=== PATIENT | female | born 1950 | race Caucasian/White ===

== ENCOUNTER 2022-11-14 19:48 | Emergency (ER) | payer MEDICARE ==
[~2022-11-14] VITALS: Ht 162.5 cm; Wt 100.3 kg
[~2022-11-14 19:48] MED LIST: CELEBREX200 MG PO; COZAAR25 MG PO; COZAAR50 MG PO; KLOR-CON M2020 MEQ PO; LASIX20 MG PO; MOTRIN800 MG PO; OMEPRAZOLE20 MG PO; SKELAXIN800 MG PO; ZIAC 10 MG-6.251 TAB PO; ZIAC 2.5 MG-6.25 MG PO
[2022-11-14] MEDS ORDERED: DICLOFENAC SOD75 MG PO (19:55)
[2022-11-14] MEDS ORDERED: IBUPROFEN600 MG PO (19:55)
[2022-11-14 20:14] LABS: BASO # 0.1 10*3/uL (0.0-0.1); BASO % 0.5 % (0.0-1.0); EOS # 0.2 10*3/uL (0.0-0.4); EOS % 2.4 % (1.0-4.0); HEMATOCRIT 42.9 % (37.0-47.0); LYMPH # 2.3 10*3/uL (1.3-4.4); LYMPH % 24.6 % (27.0-41.0); MEAN CELL VOLUME 95.8 fl (81.0-99.0); MEAN CORPUSCULAR HGB CONC 34.5 g/dl (33.0-37.0); MEAN PLATELET VOLUME 10.5 fl (9.6-12.3); MONO % 10.2 % (3.0-9.0); NEUT # 5.9 10*3/uL (2.3-7.9); NEUT % 61.8 % (47.0-73.0); PLATELET COUNT AUTOMATED 193 10*3/uL (130-400); RED BLOOD COUNT 4.48 10*6/uL (4.10-5.10); RED CELL DISTRI WIDTH 12.7 % (0-14.5); WHITE BLOOD COUNT 9.5 10*3/uL (4.8-10.8)
[2022-11-14 20:29] LABS: ACT PARTIAL THROMBO TIME 29.1 SECONDS (20.0-32.1)
[2022-11-14 20:31] LABS: ALKALINE PHOSPHATASE 77 U/L (46-116); BUN 10 mg/dl (9-23); CHLORIDE 112 mmol/L (98-107); LIPASE 37 U/L (12-53); POTASSIUM 4.1 mmol/L (3.4-5.1); SGPT/ALT 19 U/L (10-49); TOTAL PROTEIN 6.1 gm/dL (6.0-8.0)
[2022-11-14 20:32] LABS: ETHYL ALCOHOL < 3.0 mg/dl (<3)
== END 2022-11-14 21:51 | disposition home or self-care (01) ==
LOC: ED 19:48
PROVIDERS: Internal Medicine
DX: M25.561 Pain in right knee (principal); R07.81 Pleurodynia; M25.531 Pain in right wrist; M25.511 Pain in right shoulder; I10 Essential (primary) hypertension; K21.9 Gastro-esophageal reflux disease without esophagitis; Z98.890 Other specified postprocedural states

== ENCOUNTER 2023-04-11 13:29 | Emergency (ER) | payer MEDICARE ==
[~2023-04-11] VITALS: Ht 160 cm; Wt 94.3 kg
[~2023-04-11 13:29] MED LIST changes: +DICLOFENAC SOD75 MG PO; +IBUPROFEN600 MG PO
== END 2023-04-11 15:21 | disposition home or self-care (01) ==
LOC: ED 13:29
DX: S60.221A Contusion of right hand, initial encounter (principal); K21.9 Gastro-esophageal reflux disease without esophagitis; I10 Essential (primary) hypertension; Z98.890 Other specified postprocedural states; W01.0XXA Fall on same level from slipping, tripping and stumbling without subsequent striking against object, initial encounter; Y93.89 Activity, other specified; Y92.34 Swimming pool (public) as the place of occurrence of the external cause; Y99.8 Other external cause status